=== PATIENT | male | born 1990 | race Caucasian/White ===

== ENCOUNTER 2024-04-03 18:03 | Emergency (ER) | payer MEDICAID, SELFPAY ==
--- NOTE | ~2024-04-03 | XR_ITS ---
EXAMINATION: XR ELBOW, RIGHT CLINICAL INFORMATION: Injury COMPARISON: None available. TECHNIQUE: AP, lateral, and oblique views of the right elbow. FINDINGS: The bones and soft tissues are normal. No fracture or joint effusion. Alignment is anatomic. Joint spaces are maintained. XR/XR elbow RT min 3V IMPRESSION: Normal right elbow. Electronically signed by: Nehal Junior MD 04/03/2024 07:37 PM EDT
[2024-04-03 18:15] VITALS: BP 131/81; PULSE 89; RESP 18; TEMP 36.7; O2SAT 96; BMI 31.8
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
[2024-04-03 20:38] VITALS: BP 131/81; PULSE 89; RESP 18; TEMP 36.7; O2SAT 96
== END 2024-04-03 20:39 | disposition home or self-care (01) ==
PROVIDERS: Emergency Provider Emergency Medicine
DX: S51.811A Laceration without foreign body of right forearm, initial encounter (principal); V89.9XXA Person injured in unspecified vehicle accident, initial encounter; Y93.9 Activity, unspecified; Y92.9 Unspecified place or not applicable; Y99.9 Unspecified external cause status
CPT/HCPCS: 12001; 73080; 99282; 99284